=== PATIENT | male | born 1990 | race Two or more races ===

== ENCOUNTER 2017-01-09 05:39 | Emergency (ER) | payer BC, OTHER ==
[~2017-01-09] VITALS: Ht 165.1 cm; Wt 72.6 kg
[2017-01-09] MEDS ORDERED: cefTRIAXone 1GM/50ML D5W 50 ML IV ONE (06:30)
[2017-01-09] MEDS ORDERED: SODIUM CHLORIDE 0.9% 1,000 ML IV ONE (06:30)
[2017-01-09] MEDS ORDERED: KETOROLAC TROMETH 30 MG/ML 1ML VIAL IV ONE (06:30)
[2017-01-09 07:15] VITALS: BP 152/105
[2017-01-09 07:21] LABS: Basophils # (auto) 0 uL; Basophils % (auto) 0.2 % (0.0-2.0); CONDITION Y; Eosinophils # (auto) 0.1 uL; Eosinophils % (auto) 1.5 % (0.0-7.0); Hematocrit 43.9 % (41.0-53.0); Lymphocytes % (auto) 12.7 % (10.0-50.0); Mean Corpuscular Hemoglobin 30.4 pg (28.0-32.0); Mean Corpuscular Hgb Conc. 34.2 g/dL (32.0-36.0); Mean Corpuscular Volume 88.9 fL (80.0-100.0); Mean Platelet Volume 8.9 fL (7.4-10.4); Monocytes # (auto) 0.8 uL; Monocytes % (auto) 10.2 % (0.0-12.0); Neutrophils # (auto) 5.9 uL; Neutrophils % (auto) 75.4 % (37.0-80.0); Platelet Count (auto) 255 10^3/uL (140-450); Red Cell Distribution Width 12.9 % (11.6-16.0); White Blood Cell 7.8 10^3/uL (4.4-10.8)
[2017-01-09 07:42] LABS: Albumin 3.6 g/dL (3.4-5.0); BUN/Creatinine Ratio 15.5; Bilirubin, Total 0.8 mg/dL (0.2-1.0); Calcium 9.1 mg/dL (8.5-10.1); Potassium 4.2 mmol/L (3.5-5.1); Total Protein 8.2 g/dL (6.4-8.2)
== END 2017-01-09 09:09 | disposition home or self-care (01) ==
LOC: ER 05:39
DX: J02.9 Acute pharyngitis, unspecified (principal)
CPT/HCPCS: 36415; 71010; 80053; 85025; 96365; 96375; 99285; J0696; J1885; J7030

== ENCOUNTER 2018-09-18 03:04 | Emergency (ER) | payer MEDICAID, OTHER ==
[~2018-09-18] VITALS: Ht 167.6 cm; Wt 72.6 kg
[2018-09-18 03:13] VITALS: BP 155/100
== END 2018-09-18 03:34 | disposition left against medical advice (07) ==
LOC: ER 03:07
DX: M79.604 Pain in right leg (principal); R07.2 Precordial pain; Z53.21 Procedure and treatment not carried out due to patient leaving prior to being seen by health care provider; V47.5XXA Car driver injured in collision with fixed or stationary object in traffic accident, initial encounter; Y93.I9 Activity, other involving external motion; Y92.488 Other paved roadways as the place of occurrence of the external cause; Y99.8 Other external cause status

== ENCOUNTER 2023-12-03 04:24 | Inpatient (IN) | payer MEDICAID, OTHER ==
[~2023-12-03] VITALS: Ht 165.1 cm; Wt 78.6 kg
[2023-12-03 06:15] LABS: Basophils # (auto) 0.1 10 ^3/uL (0-0.2); Basophils % (auto) 0.6 % (0.0-2.0); Eosinophils # (auto) 0.2 10 ^3/uL (0-0.8); Eosinophils % (auto) 1.5 % (0.0-7.0); Hematocrit 41.7 % (41.0-53.0); Hemoglobin 14.1 g/dL (13.5-17.5); Lymphocytes # (auto) 2.7 10 ^3/uL (0.4-5.4); Lymphocytes % (auto) 24.2 % (10.0-50.0); Mean Corpuscular Hemoglobin 29.9 pg (28.0-32.0); Mean Corpuscular Hgb Conc. 33.8 g/dL (32.0-36.0); Mean Corpuscular Volume 88.3 fL (80.0-100.0); Monocytes # (auto) 0.9 10 ^3/uL (0-1.3); Monocytes % (auto) 8.4 % (0.0-12.0); Neutrophils # (auto) 7.2 10 ^3/uL (1.6-8.6); Neutrophils % (auto) 65.3 % (37.0-80.0); Red Blood Cells 4.72 10^6/uL (4.5-5.90); Red Cell Distribution Width 13.2 % (11.8-14.3)
[2023-12-03 06:35] LABS: Chloride 102 mmol/L (98-107); Potassium 4.2 mmol/L (3.5-5.1); Sodium 136 mmol/L (136-145)
[2023-12-03 06:36] LABS: Anion Gap 6 (5-15); Calcium 10.1 mg/dL (8.7-10.4); Carbon Dioxide 28 mmol/L (20-30)
[2023-12-03 06:41] LABS: Glucose 103 mg/dL (74-106)
[2023-12-03 07:01] LABS: BUN/Creatinine Ratio 14.9 (10.0-20.0); Blood Urea Nitrogen 14 mg/dL (9-23); Lipase 37 U/L (12-53)
[2023-12-03] MEDS: IOHEXOL 300 MG/ML 100ML BOTTLE IJ ONE (07:27)
[2023-12-03] MEDS: MAALOX PLUS or MAALOX 30 ML PO ONE (07:34)
[2023-12-03] MEDS: DONNATAL 5ml ORAL Elix (BELLADONNA ALK-PHENOBARB) PO ONE (07:35)
[2023-12-03] MEDS: LIDOCAINE VISCOUS 2% 15ML UD PO ONE (07:35)
[2023-12-03] MEDS ORDERED: PANT40TA2 PO (08:03)
[2023-12-03] MEDS: SODIUM CHLORIDE 0.9% 1,000 ML IV ONE ×2 (08:31→08:35)
[2023-12-03] MEDS: ONDANSETRON HCL 4 MG/2 ML VIAL IV ONE (08:39)
[2023-12-03] MEDS: MORPHINE SULFATE 4 MG/ML SYR/VIAL IV ONE (08:40)
[2023-12-03 09:41] LABS: Urine Bacteria None Seen /hpf (None Seen)
[2023-12-03 09:58] LABS: Urine Blood Negative /uL (Negative); Urine Clarity Clear (Clear); Urine Color Yellow (Yellow); Urine Mucus FEW (None Seen); Urine Protein, UAD TRACE (Negative); Urine Specific Gravity 1.029 (1.001-1.035); Urine Urobilinogen Normal (Negative); Urine WBC <1 /hpf (0 - 3); Urine pH 5.5 (5.0-9.0)
[2023-12-03] MEDS: SODIUM CHLORIDE 0.9% 1,000 ML IV SCH (10:15)
[2023-12-03] MEDS ORDERED: ACETAMINOPHEN 325 MG TAB PO PRN (10:15)
[2023-12-03] MEDS: cefTRIAXone 1GM/50ML D5W 50 ML IV ONE (10:15)
[2023-12-03] MEDS: PANTOPRAZOLE 40 MG/10 ML VIAL INJ IV ONE (11:25)
[2023-12-03] MEDS: metroNIDAZOLE 500MG/100ML 100 ML IV ONE (11:26)
[2023-12-03 12:54] VITALS: PULSE 70; RESP 16; O2SAT 99
[2023-12-03] MEDS: metroNIDAZOLE 500MG/100ML 100 ML IV SCH (14:10)
[2023-12-03] MEDS: ONDANSETRON HCL 4 MG/2 ML VIAL IV PRN (14:41)
[2023-12-03] MEDS: MORPHINE SULFATE INJ 2 MG/ml SYRG IV PRN (14:41)
[2023-12-03] MEDS: HYDROcodone-ACET 5/325MG TAB PO PRN (16:05)
[2023-12-04 07:27] LABS: Basophils # (auto) 0 10 ^3/uL (0-0.2); Basophils % (auto) 0.4 % (0.0-2.0); Eosinophils # (auto) 0.1 10 ^3/uL (0-0.8); Eosinophils % (auto) 1.6 % (0.0-7.0); Hemoglobin 12.9 g/dL (13.5-17.5); Lymphocytes # (auto) 2.2 10 ^3/uL (0.4-5.4); Lymphocytes % (auto) 26.2 % (10.0-50.0); Mean Corpuscular Hemoglobin 30.1 pg (28.0-32.0); Mean Corpuscular Volume 88.6 fL (80.0-100.0); Monocytes # (auto) 0.8 10 ^3/uL (0-1.3); Monocytes % (auto) 10.1 % (0.0-12.0); Neutrophils # (auto) 5.1 10 ^3/uL (1.6-8.6); Neutrophils % (auto) 61.7 % (37.0-80.0); Red Blood Cells 4.29 10^6/uL (4.5-5.90); Red Cell Distribution Width 12.8 % (11.8-14.3); White Blood Cell 8.2 10^3/uL (4.4-10.8)
[2023-12-04 07:45] LABS: Alanine Aminotransferase 14 U/L (7-40); Albumin 4.2 g/dL (3.2-4.8); Alkaline Phosphatase 64 U/L (46-116); Anion Gap 5 (5-15); Aspartate Aminotransferase < 8 U/L (13-40); Bilirubin, Total 0.7 mg/dL (0.2-1.0); Blood Urea Nitrogen 7 mg/dL (9-23); Calcium 9.7 mg/dL (8.7-10.4); Carbon Dioxide 27 mmol/L (20-30); Chloride 104 mmol/L (98-107); Glucose 97 mg/dL (74-106); Potassium 4.3 mmol/L (3.5-5.1); Sodium 136 mmol/L (136-145); Total Protein 7.1 g/dL (5.7-8.2)
[2023-12-04] MEDS: PANTOPRAZOLE 40 MG/10 ML VIAL INJ IV SCH (08:05)
[2023-12-04] MEDS: cefTRIAXone 1GM/50ML D5W 50 ML IV SCH (08:06)
[2023-12-04 11:58] VITALS: RESP 16; O2SAT 97
[2023-12-04] MEDS ORDERED: DICY10CA PO (12:17)
[2023-12-04] MEDS ORDERED: PANT40T PO (12:17)
[2023-12-04] MEDS ORDERED: MET500T PO (12:17)
[2023-12-04] MEDS ORDERED: DOCU-265 PO (12:17)
[2023-12-04 12:43] LABS: Magnesium 1.8 mg/dL (1.6-2.6)
[2023-12-04 12:44] LABS: Phosphorus 3.9 mg/dL (2.4-5.1)
[2023-12-04 12:52] LABS: INR 1.12 (0.9-1.15); Prothrombin Time 11.8 sec (9.3-11.8)
[2023-12-04] MEDS: metroNIDAZOLE 500 MG TAB PO SCH (15:48)
[2023-12-04 17:00] VITALS: BP 109/61; PULSE 84; RESP 18; TEMP 98.1; O2SAT 99
[2023-12-04 20:00] VITALS: PULSE 59; RESP 18
[2023-12-04 21:34] VITALS: BP 126/70; PULSE 72; RESP 18; TEMP 98.6; O2SAT 93
[2023-12-04] MEDS: ERGOCALCIFEROL 50,000 UNIT(1.25MG) CAP PO SCH (22:11)
[2023-12-05] VITALS (8 sets, daily range): BP systolic 117–131; BP diastolic 59–89; PULSE 61–75; RESP 16–20; TEMP 97–98.4; O2SAT 97–99
[2023-12-05 06:12] LABS: Anion Gap 7 (5-15); Carbon Dioxide 27 mmol/L (20-30); Chloride 105 mmol/L (98-107); Potassium 3.7 mmol/L (3.5-5.1); Sodium 139 mmol/L (136-145)
[2023-12-05 06:13] LABS: Calcium 9.4 mg/dL (8.7-10.4)
[2023-12-05 06:18] LABS: Glucose 86 mg/dL (74-106)
[2023-12-05 06:20] LABS: Phosphorus 4.3 mg/dL (2.4-5.1)
[2023-12-05 06:26] LABS: BUN/Creatinine Ratio 5.7 (10.0-20.0); Blood Urea Nitrogen < 5 mg/dL (9-23)
[2023-12-05 06:40] LABS: Basophils # (auto) 0 10 ^3/uL (0-0.2); Basophils % (auto) 0.4 % (0.0-2.0); Eosinophils # (auto) 0.1 10 ^3/uL (0-0.8); Eosinophils % (auto) 1.6 % (0.0-7.0); Hematocrit 37.9 % (41.0-53.0); Hemoglobin 13.3 g/dL (13.5-17.5); Lymphocytes # (auto) 2.5 10 ^3/uL (0.4-5.4); Lymphocytes % (auto) 34.8 % (10.0-50.0); Mean Corpuscular Hemoglobin 30.9 pg (28.0-32.0); Mean Corpuscular Volume 88.4 fL (80.0-100.0); Monocytes # (auto) 0.7 10 ^3/uL (0-1.3); Monocytes % (auto) 10.3 % (0.0-12.0); Neutrophils # (auto) 3.8 10 ^3/uL (1.6-8.6); Neutrophils % (auto) 52.9 % (37.0-80.0); Nucleated Red Blood Cells % 0.1 %; Red Blood Cells 4.28 10^6/uL (4.5-5.90); Red Cell Distribution Width 12.7 % (11.8-14.3); White Blood Cell 7.2 10^3/uL (4.4-10.8)
[2023-12-05] MEDS ORDERED: KETOROLAC TROMETH 30 MG/ML 1ML VIAL IV PRN (07:30)
[2023-12-05] MEDS: metroNIDAZOLE 500 MG TAB PO SCH (08:48)
[2023-12-05 09:38] LABS: Amphetamine Screen, Urine Neg (NEGATIVE); Barbiturate Scree,Urine Neg (NEGATIVE); Benzodiazephine Screen, Urine Neg (NEGATIVE); Cocaine Screen, Urine Neg (NEGATIVE); Opiate Scree,Urine Neg (NEGATIVE)
[2023-12-05 09:39] LABS: Cannabinoid Screen, Urine Neg (NEGATIVE); Phencyclidine Screen, Urine Neg (NEGATIVE)
[2023-12-05 10:24] LABS: Urine Bacteria None Seen /hpf (None Seen); Urine WBC None Seen /hpf (0 - 3)
[2023-12-05 10:35] LABS: Urine Blood Negative /uL (Negative); Urine Clarity Clear (Clear); Urine Color Light-Yellow (Yellow); Urine Protein, UAD Negative (Negative); Urine Urobilinogen Normal (Negative)
[2023-12-06] VITALS (7 sets, daily range): BP systolic 104–137; BP diastolic 70–97; PULSE 66–80; RESP 17–21; TEMP 36.6; O2SAT 92–98
[2023-12-06 06:55] LABS: Anion Gap 9 (5-15); Calcium 9.9 mg/dL (8.7-10.4); Carbon Dioxide 27 mmol/L (20-30); Chloride 103 mmol/L (98-107); Potassium 3.7 mmol/L (3.5-5.1); Sodium 139 mmol/L (136-145)
[2023-12-06 07:01] LABS: BUN/Creatinine Ratio 5.4 (10.0-20.0); Blood Urea Nitrogen < 5 mg/dL (9-23); Glucose 94 mg/dL (74-106)
[2023-12-06 07:08] LABS: Basophils # (auto) 0 10 ^3/uL (0-0.2); Basophils % (auto) 0.4 % (0.0-2.0); Eosinophils # (auto) 0.1 10 ^3/uL (0-0.8); Eosinophils % (auto) 1.2 % (0.0-7.0); Hemoglobin 13.7 g/dL (13.5-17.5); Lymphocytes # (auto) 2.1 10 ^3/uL (0.4-5.4); Lymphocytes % (auto) 27.6 % (10.0-50.0); Mean Corpuscular Hemoglobin 30.3 pg (28.0-32.0); Mean Corpuscular Hgb Conc. 34.4 g/dL (32.0-36.0); Mean Corpuscular Volume 88.2 fL (80.0-100.0); Monocytes # (auto) 0.7 10 ^3/uL (0-1.3); Monocytes % (auto) 8.7 % (0.0-12.0); Neutrophils # (auto) 4.7 10 ^3/uL (1.6-8.6); Neutrophils % (auto) 62.1 % (37.0-80.0); Nucleated Red Blood Cells % 0.1 %; Red Blood Cells 4.53 10^6/uL (4.5-5.90); Red Cell Distribution Width 12.5 % (11.8-14.3); White Blood Cell 7.5 10^3/uL (4.4-10.8)
[2023-12-06] MEDS ORDERED: LEVO500T91 PO (09:05)
[2023-12-06] MEDS ORDERED: MET500T PO (09:05)
[2023-12-06] MEDS ORDERED: ACET-1882 PO (09:05)
[2023-12-06] MEDS ORDERED: ERGO1CAP23 PO (09:05)
== END 2023-12-06 18:00 | disposition home or self-care (01) | DRG 392 ==
LOC: ER 04:24 → OVERFLOW 10:11 → WEST WING 12-04 12:09
PROVIDERS: ADMIT Internal Medicine; ATTEND Internal Medicine
DX: K57.20 Diverticulitis of large intestine with perforation and abscess without bleeding (principal); F17.210 Nicotine dependence, cigarettes, uncomplicated; E66.9 Obesity, unspecified; K52.9 Noninfective gastroenteritis and colitis, unspecified; D72.829 Elevated white blood cell count, unspecified; F12.90 Cannabis use, unspecified, uncomplicated; Z90.49 Acquired absence of other specified parts of digestive tract; Z68.28 Body mass index [BMI] 28.0-28.9, adult; Z80.41 Family history of malignant neoplasm of ovary
CPT/HCPCS: 36415; 74176; 80048; 80053; 80061; 80307; 81001; 82140; 82306; 82607; 83036; 83605; 83690; 83735; 84100; 84443; 85025; 85610; 85730; 87040; G0378; J2405; J2470; J3490